=== PATIENT | male | born 1940 | race Two or more races ===

== ENCOUNTER 2022-04-07 19:52 | Inpatient (IN) | payer MEDICARE ==
[~2022-04-07] VITALS: Ht 167.6 cm; Wt 63.2 kg
[2022-04-07 21:15] LABS: MEAN PLATELET VOLUME 8.3 fl (7.4-10.4); PLATELET 174 x1000/uL (130-400); RED BLOOD CELL COUNT 2.35 mill/uL (4.7-6.1); RED CELL DISTRIBUTION WIDTH 15.4 % (11.6-14.6)
[2022-04-07 21:20] LABS: INR 1.2; PROTHROMBIN TIME 12.4 sec (9.6-11.0)
[2022-04-07 21:21] LABS: HEMATOCRIT. 20.9 % (42.0-52.0); HEMOGLOBIN. 6.8 g/dL (14.0-18.0)
[2022-04-07 21:25] LABS: CHLORIDE 111 mEq/L (98-107)
[2022-04-07] MEDS ORDERED: ACETAMINOPHEN 325MG TABLET PO ONE (21:30)
[2022-04-07 21:40] LABS: PLATELET ESTIMATE NORMAL
[2022-04-08] MEDS ORDERED: GUAIFENESIN 200MG/10ML SUGAR FREE UDC PO PRN (03:30)
[2022-04-08] MEDS ORDERED: ACETAMINOPHEN 325MG TABLET PO PRN ×2 (03:30)
[2022-04-08] MEDS ORDERED: IPRATROPIUM/ALBUTEROL 0.5-3(2.5)MG/3ML NEB HHN PRN (03:30)
[2022-04-08] MEDS: FUROSEMIDE 40MG/4ML VIAL IV SCH ×3 (03:30→18:42)
[2022-04-08] MEDS ORDERED: ONDANSETRON HCL 4MG/2ML INJ IV PRN (03:30)
[2022-04-08] MEDS ORDERED: ACETAMINOPHEN 650MG SUPP PR PRN ×2 (03:30)
[2022-04-08] MEDS ORDERED: DEXTROSE 50% WATER 50ML SYRINGE IV PRN (06:15)
[2022-04-08] MEDS: BLOOD SUGAR DIAGNOSTIC STRIP TEST SCH ×4 (06:25→20:34)
[2022-04-08] MEDS: INSULIN LISPRO (LOW DOSE) 100 UNITS/ML SUBCUT SCH ×5 (06:32→21:23)
[2022-04-08] MEDS ORDERED: ENOXAPARIN 30MG/0.3ML SYR SUBCUT SCH (09:00)
[2022-04-08 09:39] LABS: CLARITY URINE CLEAR (CLEAR); COLOR URINE YELLOW (YELLOW); KETONES URINE NEGATIVE (NEGATIVE); LEUKOCYTE ESTERASE URINE NEGATIVE (NEGATIVE); NITRITE URINE NEGATIVE (NEGATIVE); OCCULT BLOOD URINE NEGATIVE (NEGATIVE); PROTEIN URINE 3+ (NEGATIVE); UROBILINOGEN URINE 0.2 E.U./dL (0.2-1.0)
[2022-04-08 09:57] LABS: *AMPHETAMINES SCREEN URINE NEGATIVE (NEGATIVE); *BARBITURATES SCREEN URINE NEGATIVE (NEGATIVE); *BENZODIAZEPINES SCREEN URINE NEGATIVE (NEGATIVE); *COCAINE SCREEN URINE NEGATIVE (NEGATIVE); CANNABINOID URINE SCREEN NEGATIVE (NEGATIVE); METHADONE URINE SCREEN NEGATIVE (NEGATIVE); OPIATES URINE SCREEN NEGATIVE (NEGATIVE); PHENCYCLIDINE URINE SCREEN NEGATIVE (NEGATIVE)
[2022-04-08 10:59] VITALS: BP 185/68
[2022-04-08] MEDS: CLONIDINE 0.1MG TABLET PO PRN ×2 (11:37→21:02)
[2022-04-08 12:00] VITALS: BP 138/72
[2022-04-08] MEDS: IPRATROPIUM/ALBUTEROL 0.5-3(2.5)MG/3ML NEB HHN SCH ×2 (14:50→20:35)
[2022-04-08 16:00] VITALS: BP 141/70
[2022-04-08 16:27] LABS: HEMATOCRIT. 25.8 % (42.0-52.0); HEMOGLOBIN. 8.6 g/dL (14.0-18.0); MEAN CORPUSCULAR HEMOGLOBIN 29.5 pg (28.0-32.0); MEAN CORPUSCULAR VOLUME 88.2 fL (80.0-94.0); MEAN PLATELET VOLUME 8.5 fl (7.4-10.4); PLATELET 167 x1000/uL (130-400); RED BLOOD CELL COUNT 2.92 mill/uL (4.7-6.1); RED CELL DISTRIBUTION WIDTH 15.1 % (11.6-14.6)
[2022-04-08] MEDS ORDERED: NIFE90TA60 PO (16:31)
[2022-04-08] MEDS ORDERED: PANT40TA51 PO (16:31)
[2022-04-08] MEDS ORDERED: KEPP250 MT (16:31)
[2022-04-08] MEDS ORDERED: FERR325T6 MT (16:31)
[2022-04-08] MEDS ORDERED: HYDR100T26 PO (16:31)
[2022-04-08] MEDS ORDERED: ASPI-1160 PO (16:31)
[2022-04-08] MEDS ORDERED: NEPVIT MT (16:31)
[2022-04-08] MEDS ORDERED: ATOR-2 PO (16:31)
[2022-04-08] MEDS ORDERED: METO-411 PO (16:31)
[2022-04-08 16:54] LABS: CHLORIDE 109 mEq/L (98-107)
[2022-04-08 17:08] LABS: CREATINE KINASE 120 IU/L (39-308); HDL CHOLESTEROL 70 mg/dL (40-59); LDL CHOLESTEROL 53 mg/dL (5-100)
[2022-04-08 17:17] LABS: PLATELET ESTIMATE NORMAL
[2022-04-08 19:45] LABS: BASOPHILS % 0.7 % (0.0-2.0); HEMATOCRIT. 25.6 % (42.0-52.0); HEMOGLOBIN. 8.5 g/dL (14.0-18.0); LYMPHOCYTES % 8.1 % (20.0-50.0); MEAN CORPUSCULAR HEMOGLOBIN 29.2 pg (28.0-32.0); MEAN CORPUSCULAR VOLUME 88.1 fL (80.0-94.0); MEAN PLATELET VOLUME 7.8 fl (7.4-10.4); MONOCYTES % 8.7 % (2.0-8.0); NEUTROPHILS % 81.5 % (40.0-76.0); PLATELET 153 x1000/uL (130-400); RED CELL DISTRIBUTION WIDTH 15.1 % (11.6-14.6)
[2022-04-08 19:55] LABS: VITAMIN B12 SERUM 1154 pg/mL (211-911)
[2022-04-08 20:00] VITALS: BP 180/75
[2022-04-09] VITALS: BP 155/59
[2022-04-09] MEDS: IPRATROPIUM/ALBUTEROL 0.5-3(2.5)MG/3ML NEB HHN SCH ×5 (01:09→20:19)
[2022-04-09 04:00] VITALS: BP 184/59
[2022-04-09] MEDS: CLONIDINE 0.1MG TABLET PO PRN ×2 (05:33→08:26)
[2022-04-09] MEDS: BLOOD SUGAR DIAGNOSTIC STRIP TEST SCH ×4 (05:33→21:14)
[2022-04-09] MEDS: INSULIN LISPRO (LOW DOSE) 100 UNITS/ML SUBCUT SCH ×4 (05:33→21:50)
[2022-04-09 07:39] LABS: BASOPHILS % 0.6 % (0.0-2.0); EOSINOPHILS % 6.2 % (0.0-5.0); HEMATOCRIT. 23.3 % (42.0-52.0); HEMOGLOBIN. 7.7 g/dL (14.0-18.0); LYMPHOCYTES % 10.2 % (20.0-50.0); MEAN CORPUSCULAR HEMOGLOBIN 29.3 pg (28.0-32.0); MEAN CORPUSCULAR VOLUME 88.9 fL (80.0-94.0); MEAN PLATELET VOLUME 8.5 fl (7.4-10.4); MONOCYTES % 10.4 % (2.0-8.0); NEUTROPHILS % 72.6 % (40.0-76.0); PLATELET 138 x1000/uL (130-400); RED BLOOD CELL COUNT 2.63 mill/uL (4.7-6.1); RED CELL DISTRIBUTION WIDTH 14.9 % (11.6-14.6)
[2022-04-09 08:00] VITALS: BP 199/78
[2022-04-09] MEDS: FUROSEMIDE 40MG/4ML VIAL IV SCH ×2 (08:26→17:02)
[2022-04-09] MEDS ORDERED: HYDRALAZINE 20MG/ML VIAL IV PRN (10:15)
[2022-04-09] MEDS: IRON SUCROSE COMPLEX 100 MG/5 ML ML IV SCH (10:56)
[2022-04-09] MEDS: METOPROLOL SUCCINATE 50MG ER TABLET PO SCH (10:57)
[2022-04-09] MEDS: NIFEDIPINE XL 90MG TAB PO SCH (10:57)
[2022-04-09] MEDS: METOLAZONE 5MG TABLET PO SCH ×2 (10:58→17:02)
[2022-04-09 12:00] VITALS: BP 152/68
[2022-04-09] MEDS: ACETYLCYSTEINE 100MG/ML 10% VIAL 4ML INH SCH (14:26)
[2022-04-09 16:00] VITALS: BP 145/72
[2022-04-09] MEDS: CEFTRIAXONE 1,000 MG in DEXTROSE 5% WATER 50 ML IV SCH (16:14)
[2022-04-09] MEDS: AZITHROMYCIN 500 MG in DEXT 5% WATER 250 ML IV SCH (16:14)
[2022-04-09] MEDS: SODIUM CHLORIDE 3% FOR INH 4ML UD NEB INH SCH (16:27)
[2022-04-09 20:00] VITALS: BP 124/50
[2022-04-10] VITALS: BP 137/53
[2022-04-10] MEDS: IPRATROPIUM/ALBUTEROL 0.5-3(2.5)MG/3ML NEB HHN SCH ×6 (00:10→20:00)
[2022-04-10] MEDS: SODIUM CHLORIDE 3% FOR INH 4ML UD NEB INH SCH ×3 (01:28→16:40)
[2022-04-10] MEDS: ACETYLCYSTEINE 100MG/ML 10% VIAL 4ML INH SCH ×3 (01:28→16:41)
[2022-04-10] MEDS: MAGNESIUM/ALUMINUM HYDROXIDE/SIMETHICONE 30ML UDC PO PRN (02:10)
[2022-04-10 04:00] VITALS: BP 121/61
[2022-04-10] MEDS: INSULIN LISPRO (LOW DOSE) 100 UNITS/ML SUBCUT SCH ×4 (05:19→20:14)
[2022-04-10] MEDS: BLOOD SUGAR DIAGNOSTIC STRIP TEST SCH ×4 (05:19→19:34)
[2022-04-10 07:08] LABS: BASOPHILS % 0.6 % (0.0-2.0); EOSINOPHILS % 13.1 % (0.0-5.0); HEMATOCRIT. 23.8 % (42.0-52.0); MEAN CORPUSCULAR HEMOGLOBIN 29.9 pg (28.0-32.0); MEAN CORPUSCULAR VOLUME 88.7 fL (80.0-94.0); MEAN PLATELET VOLUME 8.7 fl (7.4-10.4); MONOCYTES % 9.9 % (2.0-8.0); NEUTROPHILS % 65.4 % (40.0-76.0); PLATELET 137 x1000/uL (130-400); RED BLOOD CELL COUNT 2.68 mill/uL (4.7-6.1); RED CELL DISTRIBUTION WIDTH 15.1 % (11.6-14.6)
[2022-04-10 08:00] VITALS: BP 159/65
[2022-04-10] MEDS: FUROSEMIDE 40MG/4ML VIAL IV SCH ×2 (09:32→18:18)
[2022-04-10] MEDS: METOLAZONE 5MG TABLET PO SCH ×2 (09:32→19:02)
[2022-04-10] MEDS: NIFEDIPINE XL 90MG TAB PO SCH (09:33)
[2022-04-10] MEDS: METOPROLOL SUCCINATE 50MG ER TABLET PO SCH ×2 (09:41→18:18)
[2022-04-10 12:00] VITALS: BP 166/62
[2022-04-10] MEDS: IRON SUCROSE COMPLEX 100 MG/5 ML ML IV SCH (12:38)
[2022-04-10] MEDS: CLONIDINE 0.1MG TABLET PO PRN (12:39)
[2022-04-10] MEDS: CEFTRIAXONE 1,000 MG in DEXTROSE 5% WATER 50 ML IV SCH (14:16)
[2022-04-10] MEDS: AZITHROMYCIN 500 MG in DEXT 5% WATER 250 ML IV SCH (14:16)
[2022-04-10 16:00] VITALS: BP 120/53
[2022-04-10 20:00] VITALS: BP 134/53
[2022-04-11] VITALS (7 sets, daily range): BP systolic 110–168; BP diastolic 59–100
[2022-04-11] MEDS: ACETYLCYSTEINE 100MG/ML 10% VIAL 4ML INH SCH ×3 (00:10→15:35)
[2022-04-11] MEDS: IPRATROPIUM/ALBUTEROL 0.5-3(2.5)MG/3ML NEB HHN SCH ×6 (00:10→20:50)
[2022-04-11] MEDS: SODIUM CHLORIDE 3% FOR INH 4ML UD NEB INH SCH ×3 (00:20→15:24)
[2022-04-11] MEDS: BLOOD SUGAR DIAGNOSTIC STRIP TEST SCH ×4 (05:44→20:41)
[2022-04-11] MEDS: INSULIN LISPRO (LOW DOSE) 100 UNITS/ML SUBCUT SCH ×4 (05:44→20:41)
[2022-04-11 07:00] LABS: BASOPHILS % 0.7 % (0.0-2.0); EOSINOPHILS % 11.8 % (0.0-5.0); HEMATOCRIT. 25.7 % (42.0-52.0); HEMOGLOBIN. 8.7 g/dL (14.0-18.0); LYMPHOCYTES % 8.2 % (20.0-50.0); MEAN CORPUSCULAR HEMOGLOBIN 30.3 pg (28.0-32.0); MEAN PLATELET VOLUME 8.5 fl (7.4-10.4); MONOCYTES % 9.5 % (2.0-8.0); NEUTROPHILS % 69.8 % (40.0-76.0); PLATELET 150 x1000/uL (130-400); RED BLOOD CELL COUNT 2.89 mill/uL (4.7-6.1); RED CELL DISTRIBUTION WIDTH 15.2 % (11.6-14.6)
[2022-04-11 07:55] LABS: PHOSPHORUS 4.8 mg/dL (2.5-4.9)
[2022-04-11] MEDS ORDERED: LIDOCAINE HCL/PF 1% 10 MG/ML 5ML VIAL ONE (07:57)
[2022-04-11] MEDS ORDERED: SODIUM BICARBONATE 4% (2.4MEQ) 5ML VIAL IV ONE (07:57)
[2022-04-11] MEDS: FUROSEMIDE 40MG/4ML VIAL IV SCH ×2 (08:50→17:48)
[2022-04-11] MEDS: POTASSIUM CHLORIDE 20MEQ TABLET SR PO NR (08:50)
[2022-04-11] MEDS: METOPROLOL SUCCINATE 50MG ER TABLET PO SCH (08:50)
[2022-04-11] MEDS: AZITHROMYCIN 500 MG TABLET PO SCH (08:50)
[2022-04-11] MEDS: NIFEDIPINE XL 90MG TAB PO SCH (08:51)
[2022-04-11] MEDS: METOLAZONE 5MG TABLET PO SCH ×2 (08:54→17:48)
[2022-04-11] MEDS ORDERED: AZITHROMYCIN 500 MG TABLET PO SCH (09:00)
[2022-04-11] MEDS: CEFTRIAXONE 1,000 MG in DEXTROSE 5% WATER 50 ML IV SCH (13:42)
[2022-04-11 16:24] LABS: INR 1.1; PROTHROMBIN TIME 11.9 sec (9.6-11.0)
[2022-04-11] MEDS: CLONIDINE 0.1MG TABLET PO PRN (20:56)
[2022-04-12] MEDS: ACETYLCYSTEINE 100MG/ML 10% VIAL 4ML INH SCH ×4 (00:57→23:34)
[2022-04-12] MEDS: IPRATROPIUM/ALBUTEROL 0.5-3(2.5)MG/3ML NEB HHN SCH ×7 (00:57→23:37)
[2022-04-12 04:00] VITALS: BP 135/51
[2022-04-12] MEDS: BLOOD SUGAR DIAGNOSTIC STRIP TEST SCH ×4 (06:27→20:28)
[2022-04-12] MEDS: INSULIN LISPRO (LOW DOSE) 100 UNITS/ML SUBCUT SCH ×4 (06:27→20:28)
[2022-04-12] MEDS: POTASSIUM CHLORIDE 20MEQ TABLET SR PO NR (06:54)
[2022-04-12] MEDS: SODIUM CHLORIDE 3% FOR INH 4ML UD NEB INH SCH ×3 (07:43→23:34)
[2022-04-12 07:46] LABS: BASOPHILS % 0.9 % (0.0-2.0); EOSINOPHILS % 9.2 % (0.0-5.0); HEMATOCRIT. 26.1 % (42.0-52.0); HEMOGLOBIN. 8.9 g/dL (14.0-18.0); LYMPHOCYTES % 8.8 % (20.0-50.0); MEAN CORPUSCULAR HEMOGLOBIN 29.9 pg (28.0-32.0); MEAN CORPUSCULAR VOLUME 87.3 fL (80.0-94.0); MEAN PLATELET VOLUME 8.7 fl (7.4-10.4); MONOCYTES % 7.2 % (2.0-8.0); NEUTROPHILS % 73.9 % (40.0-76.0); PLATELET 164 x1000/uL (130-400); RED BLOOD CELL COUNT 2.99 mill/uL (4.7-6.1); RED CELL DISTRIBUTION WIDTH 14.6 % (11.6-14.6)
[2022-04-12 08:00] VITALS: BP 142/53
[2022-04-12] MEDS ORDERED: POTASSIUM CHLORIDE 20MEQ/PACKET PO ONE (08:30)
[2022-04-12] MEDS ORDERED: POTASSIUM CHLORIDE 10MEQ TABLET SR PO NR (09:30)
[2022-04-12 10:19] LABS: PHOSPHORUS 4.6 mg/dL (2.5-4.9)
[2022-04-12] MEDS: FUROSEMIDE 40MG/4ML VIAL IV SCH ×2 (10:19→17:38)
[2022-04-12] MEDS: METOPROLOL SUCCINATE 50MG ER TABLET PO SCH (10:20)
[2022-04-12] MEDS: NIFEDIPINE XL 90MG TAB PO SCH (10:20)
[2022-04-12] MEDS: AZITHROMYCIN 500 MG TABLET PO SCH (10:20)
[2022-04-12 12:00] VITALS: BP 141/50
[2022-04-12] MEDS: CEFTRIAXONE 1,000 MG in DEXTROSE 5% WATER 50 ML IV SCH (15:33)
[2022-04-12] MEDS: DOCUSATE SODIUM 100MG CAPSULE PO PRN (15:41)
[2022-04-12 16:00] VITALS: BP 143/58
[2022-04-12] MEDS: FERROUS SULFATE 325MG TABLET PO SCH (17:37)
[2022-04-12 20:00] VITALS: BP 152/61
[2022-04-13] VITALS: BP 144/58
[2022-04-13] MEDS: MAGNESIUM/ALUMINUM HYDROXIDE/SIMETHICONE 30ML UDC PO PRN (03:20)
[2022-04-13] MEDS: IPRATROPIUM/ALBUTEROL 0.5-3(2.5)MG/3ML NEB HHN SCH ×5 (03:29→21:26)
[2022-04-13 04:00] VITALS: BP 146/56
[2022-04-13] MEDS: INSULIN LISPRO (LOW DOSE) 100 UNITS/ML SUBCUT SCH ×3 (06:24→17:40)
[2022-04-13] MEDS: BLOOD SUGAR DIAGNOSTIC STRIP TEST SCH ×3 (06:24→17:42)
[2022-04-13] MEDS: FERROUS SULFATE 325MG TABLET PO SCH ×3 (06:41→17:46)
[2022-04-13 08:00] VITALS: BP 165/65
[2022-04-13 08:16] LABS: BASOPHILS % 0.5 % (0.0-2.0); EOSINOPHILS % 5.4 % (0.0-5.0); HEMATOCRIT. 24.9 % (42.0-52.0); HEMOGLOBIN. 8.4 g/dL (14.0-18.0); LYMPHOCYTES % 7.2 % (20.0-50.0); MEAN CORPUSCULAR HEMOGLOBIN 29.5 pg (28.0-32.0); MEAN CORPUSCULAR VOLUME 87.6 fL (80.0-94.0); MEAN PLATELET VOLUME 8.9 fl (7.4-10.4); MONOCYTES % 8.4 % (2.0-8.0); NEUTROPHILS % 78.5 % (40.0-76.0); PLATELET 161 x1000/uL (130-400); RED BLOOD CELL COUNT 2.84 mill/uL (4.7-6.1); RED CELL DISTRIBUTION WIDTH 14.7 % (11.6-14.6)
[2022-04-13] MEDS: NIFEDIPINE XL 90MG TAB PO SCH (08:25)
[2022-04-13] MEDS: FUROSEMIDE 40MG/4ML VIAL IV SCH ×2 (08:25→17:42)
[2022-04-13] MEDS: AZITHROMYCIN 500 MG TABLET PO SCH (08:26)
[2022-04-13] MEDS: METOPROLOL SUCCINATE 50MG ER TABLET PO SCH (08:26)
[2022-04-13] MEDS: ACETYLCYSTEINE 100MG/ML 10% VIAL 4ML INH SCH ×2 (08:43→16:38)
[2022-04-13] MEDS: SODIUM CHLORIDE 3% FOR INH 4ML UD NEB INH SCH (08:43)
[2022-04-13] MEDS ORDERED: POTASSIUM CHLORIDE 20MEQ TABLET SR PO SCH (08:45)
[2022-04-13] MEDS ORDERED: METOLAZONE 2.5MG TABLET PO SCH (09:00)
[2022-04-13] MEDS: DOCUSATE SODIUM 100MG CAPSULE PO PRN (11:24)
[2022-04-13 12:00] VITALS: BP 143/69
[2022-04-13] MEDS: CEFTRIAXONE 1,000 MG in DEXTROSE 5% WATER 50 ML IV SCH (12:28)
[2022-04-13] MEDS ORDERED: BISACODYL 10MG SUPP PR NR (14:45)
[2022-04-13 15:20] LABS: FERRITIN 588 ng/mL (22-322)
[2022-04-13 16:00] VITALS: BP 157/60
[2022-04-13] MEDS ORDERED: LEVO250T43 MT (16:29)
[2022-04-13] MEDS ORDERED: FURO-151 MT (16:29)
[2022-04-13 16:34] LABS: FOLIC ACID (FOLATE) SERUM > 20.00 ng/mL (>5.38)
[2022-04-13 18:27] VITALS: BP 157/60
[2022-04-14 09:06] LABS: A/G RATIO 0.8 (0.7-1.7); ALBUMIN 2.9 g/dL (2.9-4.4); ALPHA-1-GLOBULIN 0.4 g/dL (0.0-0.4); ALPHA-2-GLOBULIN 0.8 g/dL (0.4-1.0); GAMMA GLOBULINS 1.4 g/dL (0.4-1.8); GLOBULIN TOTAL 3.7 g/dL (2.2-3.9); IMMUNOGLOBULIN A 428 mg/dL (61-437); IMMUNOGLOBULIN G 1280 mg/dL (603-1613); IMMUNOGLOBULIN M 59 mg/dL (15-143); M-SPIKE Not Observed g/dL (Not Observed); TOTAL PROTEIN SERUM 6.6 g/dL (6.0-8.5)
[2022-04-15 13:07] LABS: FOLATE HEMOLYSATE > 620.0 ng/mL (Not Estab.)
[2022-04-15 18:44] LABS: VITAMIN B12 SERUM 1635 pg/mL (211-911)
== END 2022-04-13 22:10 | disposition home health service (06) | DRG 291 ==
LOC: ER 19:52 → MICUSO 04-08 01:02 → 8WST 04-08 10:46
PROVIDERS: ADMIT Family Medicine Adult Medicine; ATTEND Family Medicine Adult Medicine
PROC: 30233N1 Transfusion of Nonautologous Red Blood Cells into Peripheral Vein, Percutaneous Approach (ICD-10-PCS; 2022-04-08)
PROC: 0W9B3ZZ Drainage of Left Pleural Cavity, Percutaneous Approach (ICD-10-PCS; principal; 2022-04-11)
DX: I13.0 Hypertensive heart and chronic kidney disease with heart failure and stage 1 through stage 4 chronic kidney disease, or unspecified chronic kidney disease (principal); J18.9 Pneumonia, unspecified organism; J96.01 Acute respiratory failure with hypoxia; E44.0 Moderate protein-calorie malnutrition; N17.9 Acute kidney failure, unspecified; J91.8 Pleural effusion in other conditions classified elsewhere; J44.0 Chronic obstructive pulmonary disease with (acute) lower respiratory infection; Z20.822 Contact with and (suspected) exposure to COVID-19; E11.22 Type 2 diabetes mellitus with diabetic chronic kidney disease; J44.9 Chronic obstructive pulmonary disease, unspecified; N18.9 Chronic kidney disease, unspecified; I50.9 Heart failure, unspecified; D63.1 Anemia in chronic kidney disease; I25.10 Atherosclerotic heart disease of native coronary artery without angina pectoris; E78.5 Hyperlipidemia, unspecified; R77.8 Other specified abnormalities of plasma proteins; R79.89 Other specified abnormal findings of blood chemistry; R80.9 Proteinuria, unspecified; Z68.22 Body mass index [BMI] 22.0-22.9, adult; Z88.8 Allergy status to other drugs, medicaments and biological substances; Z79.899 Other long term (current) drug therapy
CPT/HCPCS: 32555; 36415; 71045; 71250; 76770; 80048; 80053; 80061; 80305; 81003; 82040; 82550; 82570; 82607; 82728; 82746; 82747; 82784; 82962; 83540; 83550; 83615; 83735; 83880; 84100; 84145; 84155; 84156; 84165; 84443; 84484; 85014; 85025; 85044; 86334; 86850; 86900; 86920; 87426; 88108; 88312; 93005; 93306; 94640; 97166; 99285; C9803; J0456; J0696; J1815; J1940; J3490; J7060; J7608; P9016

== ENCOUNTER 2022-06-26 20:47 | Inpatient (IN) | payer MEDICARE ==
[~2022-06-26] VITALS: Ht 170.2 cm; Wt 64.0 kg
[~2022-06-26 20:47] MED LIST: ASPI-1160 PO; ATOR-2 PO; FERR325T6 MT; FURO-151 MT; HYDR100T26 PO; KEPP250 MT; LEVO250T74 MT; METO-411 PO; NEPVIT MT; NIFE90TA60 PO; PANT40TA51 PO
[2022-06-26 21:01] LABS: BG BASE EXCESS -5.5 mmol/L (-2.0-2.0); BG CARBOXYHEMOGLOBIN 0.8 % (0.5-1.5); BG DEOXYHEMOGLOBIN 4.8 % (0.0-5.0); BG FRACTION INSPIRED OXYGEN 28; BG HCO3 ACT 19.2 mmol/L (22.0-26.0); BG METHEMOGLOBIN 0.4 % (0.0-1.5); BG OXYGEN SATURATION 95.1 % (92.0-98.5); BG PCO2 33.9 mmHg (35.0-45.0); BG PO2 74.4 mmHg (75.0-100.0); BG SAMPLE SITE RIGHT RADIAL; BG TOTAL HEMOGLOBIN 7.6 g/dL (12.0-18.0); BG VENT MODE NASAL CANNULA
[2022-06-26] MEDS ORDERED: IPRATROPIUM/ALBUTEROL 0.5-3(2.5)MG/3ML NEB HHN ONE (21:15)
[2022-06-26] MEDS ORDERED: METHYLPREDNISOLONE SOD SUCC 125 MG/2 ML VIAL IV ONE (21:15)
[2022-06-26 21:59] LABS: MEAN CORPUSCULAR HEMOGLOBIN 30.1 pg (28.0-32.0); MEAN CORPUSCULAR VOLUME 88.6 fL (80.0-94.0); MEAN PLATELET VOLUME 7.3 fl (7.4-10.4); PLATELET 220 x1000/uL (130-400); RED BLOOD CELL COUNT 2.31 mill/uL (4.7-6.1); RED CELL DISTRIBUTION WIDTH 14.9 % (11.6-14.6)
[2022-06-26 22:11] LABS: HEMOGLOBIN. 6.9 g/dL (14.0-18.0)
[2022-06-26 22:12] LABS: HEMATOCRIT. 20.4 % (42.0-52.0)
[2022-06-26 22:16] LABS: CHLORIDE 110 mEq/L (98-107)
[2022-06-26] MEDS ORDERED: AZITHROMYCIN 500 MG in DEXT 5% WATER 250 ML IV SCH (22:45)
[2022-06-26] MEDS ORDERED: CEFTRIAXONE 1 G PREMIX 50 ML IV ONE (22:45)
[2022-06-26] MEDS ORDERED: AZITHROMYCIN 500MG/250ML 250 ML IV NR (22:45)
[2022-06-26 22:53] LABS: PLATELET ESTIMATE NORMAL
[2022-06-26] MEDS ORDERED: FUROSEMIDE 100MG/10ML VIAL IVP NR (23:15)
[2022-06-27] MEDS ORDERED: SODIUM CHLORIDE 3% FOR INH 15ML VIAL NEB INH NR (07:30)
[2022-06-27] MEDS ORDERED: IPRATROPIUM/ALBUTEROL 0.5-3(2.5)MG/3ML NEB HHN PRN (07:30)
[2022-06-27] MEDS ORDERED: AMLODIPINE 10MG TABLET PO NR (11:00)
[2022-06-27] MEDS ORDERED: DEXTROSE 50% WATER 50ML SYRINGE IV PRN (11:00)
[2022-06-27] MEDS: BLOOD SUGAR DIAGNOSTIC STRIP TEST SCH ×3 (13:00→20:37)
[2022-06-27] MEDS: INSULIN LISPRO 100 UNITS/ML SUBCUT SCH ×3 (13:20→20:38)
[2022-06-27 14:56] VITALS: BP 145/64
[2022-06-27 16:00] VITALS: BP 145/64
[2022-06-27] MEDS ORDERED: PNEUMOCOCCAL 23-VAL P-SAC VAC 0.5 ML IM ONE (16:30)
[2022-06-27] MEDS ORDERED: INFLUENZA VACCINE 05/PF 0.5 ML SYRINGE IM ONE (16:30)
[2022-06-27] MEDS ORDERED: FUROSEMIDE 40MG/4ML VIAL IVP SCH (18:00)
[2022-06-27 20:00] VITALS: BP 153/66
[2022-06-27] MEDS ORDERED: CEFTRIAXONE 1,000 MG in DEXTROSE 5% WATER 50 ML IV SCH (21:00)
[2022-06-27] MEDS: CEFTRIAXONE 1,000 MG in DEXTROSE 5% WATER 50 ML IV SCH (21:07)
[2022-06-27 23:44] LABS: BASOPHILS % 0.4 % (0.0-2.0); EOSINOPHILS % 0.3 % (0.0-5.0); HEMATOCRIT. 25.5 % (42.0-52.0); HEMOGLOBIN. 8.7 g/dL (14.0-18.0); LYMPHOCYTES % 8.5 % (20.0-50.0); MEAN CORPUSCULAR HEMOGLOBIN 29.9 pg (28.0-32.0); MEAN CORPUSCULAR VOLUME 87.8 fL (80.0-94.0); MONOCYTES % 10.3 % (2.0-8.0); NEUTROPHILS % 80.5 % (40.0-76.0); PLATELET 253 x1000/uL (130-400); RED BLOOD CELL COUNT 2.91 mill/uL (4.7-6.1); RED CELL DISTRIBUTION WIDTH 15.2 % (11.6-14.6)
[2022-06-28] VITALS: BP 107/74
[2022-06-28 00:19] LABS: CHLORIDE 107 mEq/L (98-107)
[2022-06-28] MEDS: SODIUM CHLORIDE 0.45% 1,000 ML IV SCH ×2 (00:24→22:11)
[2022-06-28 00:27] LABS: TOTAL IRON BINDING CAPACITY 180 ug/dL (250-450)
[2022-06-28 01:30] LABS: CLARITY URINE CLEAR (CLEAR); COLOR URINE YELLOW (YELLOW); KETONES URINE NEGATIVE (NEGATIVE); LEUKOCYTE ESTERASE URINE NEGATIVE (NEGATIVE); NITRITE URINE NEGATIVE (NEGATIVE); OCCULT BLOOD URINE NEGATIVE (NEGATIVE); PROTEIN URINE 3+ (NEGATIVE); SPECIFIC GRAVITY URINE 1.013 (1.005-1.030); UROBILINOGEN URINE 0.2 E.U./dL (0.2-1.0)
[2022-06-28 04:00] VITALS: BP 125/71
[2022-06-28] MEDS: INSULIN LISPRO 100 UNITS/ML SUBCUT SCH ×4 (06:06→21:00)
[2022-06-28] MEDS: BLOOD SUGAR DIAGNOSTIC STRIP TEST SCH ×4 (06:06→21:00)
[2022-06-28 08:00] VITALS: BP 121/87
[2022-06-28] MEDS ORDERED: SODIUM CHLORIDE 3% FOR INH 4ML UD NEB INH SCH (09:00)
[2022-06-28] MEDS ORDERED: FUROSEMIDE 40MG/4ML VIAL IVP SCH (09:00)
[2022-06-28 09:50] LABS: BASOPHILS % 0.6 % (0.0-2.0); HEMATOCRIT. 24.3 % (42.0-52.0); HEMOGLOBIN. 8.3 g/dL (14.0-18.0); LYMPHOCYTES % 7.6 % (20.0-50.0); MEAN CORPUSCULAR HEMOGLOBIN 30.1 pg (28.0-32.0); MEAN CORPUSCULAR VOLUME 88.2 fL (80.0-94.0); MEAN PLATELET VOLUME 7.9 fl (7.4-10.4); NEUTROPHILS % 82.8 % (40.0-76.0); PLATELET 251 x1000/uL (130-400); RED BLOOD CELL COUNT 2.76 mill/uL (4.7-6.1); RED CELL DISTRIBUTION WIDTH 15.2 % (11.6-14.6)
[2022-06-28] MEDS: AMLODIPINE 10MG TABLET PO SCH (09:58)
[2022-06-28 12:00] VITALS: BP 212/86
[2022-06-28] MEDS ORDERED: ATOR20TA65 PO (13:07)
[2022-06-28] MEDS ORDERED: KEPP500 PO (13:07)
[2022-06-28] MEDS ORDERED: METO-385 PO (13:07)
[2022-06-28 13:17] LABS: INR 1.1; PARTIAL THROMBOPLASTIN TIME 29.4 sec (23.4-31.0); PROTHROMBIN TIME 11.9 sec (9.6-11.0)
[2022-06-28] MEDS: FOLIC ACID/VITAMIN B COMP W-C TABLET PO SCH (13:40)
[2022-06-28] MEDS: HYDRALAZINE HCL 100MG TABLET PO SCH ×2 (13:40→22:11)
[2022-06-28] MEDS: LEVETIRACETAM 500MG TABLET PO SCH ×2 (13:40→22:11)
[2022-06-28] MEDS ORDERED: METOPROLOL SUCCINATE 50MG ER TABLET PO SCH (14:00)
[2022-06-28] MEDS ORDERED: ASPIRIN 81MG TABLET PO SCH (14:00)
[2022-06-28 14:37] LABS: VITAMIN B12 SERUM 1983 pg/mL (211-911)
[2022-06-28 16:00] VITALS: BP 123/63
[2022-06-28] MEDS ORDERED: CLON0.2T PO (16:00)
[2022-06-28 20:00] VITALS: BP 179/68
[2022-06-28] MEDS: ACETYLCYSTEINE 200MG/ML 20% VIAL 4ML INH SCH (21:00)
[2022-06-28] MEDS: IPRATROPIUM/ALBUTEROL 0.5-3(2.5)MG/3ML NEB HHN SCH (21:02)
[2022-06-28] MEDS: ATORVASTATIN CALCIUM 20MG TABLET PO SCH (22:10)
[2022-06-28] MEDS: CEFTRIAXONE 1,000 MG in DEXTROSE 5% WATER 50 ML IV SCH (22:11)
[2022-06-29] VITALS: BP 176/65
[2022-06-29] MEDS: IPRATROPIUM/ALBUTEROL 0.5-3(2.5)MG/3ML NEB HHN SCH ×4 (00:56→22:28)
[2022-06-29] MEDS: LOSARTAN POTASSIUM 100 MG TABLET PO SCH ×2 (02:03→10:13)
[2022-06-29 04:00] VITALS: BP 196/74
[2022-06-29] MEDS: PANTOPRAZOLE 40MG DR TABLET PO SCH (06:09)
[2022-06-29] MEDS: BLOOD SUGAR DIAGNOSTIC STRIP TEST SCH ×4 (06:10→21:00)
[2022-06-29] MEDS: INSULIN LISPRO 100 UNITS/ML SUBCUT SCH ×4 (06:10→23:17)
[2022-06-29] MEDS: HYDRALAZINE HCL 100MG TABLET PO SCH (06:14)
[2022-06-29 08:00] VITALS: BP 182/64
[2022-06-29] MEDS ORDERED: SODIUM BICARBONATE 4% (2.4MEQ) 5ML VIAL IV ONE (08:33)
[2022-06-29] MEDS ORDERED: SODIUM CHLORIDE 3% FOR INH 4ML UD NEB INH SCH (09:00)
[2022-06-29] MEDS: FOLIC ACID/VITAMIN B COMP W-C TABLET PO SCH (10:12)
[2022-06-29] MEDS: AMLODIPINE 10MG TABLET PO SCH (10:12)
[2022-06-29] MEDS: LEVETIRACETAM 500MG TABLET PO SCH ×2 (10:12→23:13)
[2022-06-29] MEDS: CARVEDILOL 6.25 MG TABLET PO SCH ×2 (10:13→23:13)
[2022-06-29] MEDS: FUROSEMIDE 20MG/2ML VIAL IVP SCH (10:13)
[2022-06-29] MEDS: ACETYLCYSTEINE 200MG/ML 20% VIAL 4ML INH SCH ×4 (10:14→15:48)
[2022-06-29] MEDS: ISOSORBIDE MONONITRATE 30MG TABLET SR 24HR PO SCH (11:34)
[2022-06-29 12:00] VITALS: BP 177/68
[2022-06-29] MEDS: HYDRALAZINE HCL 50MG TABLET PO SCH ×2 (13:24→23:17)
[2022-06-29 16:00] VITALS: BP 123/63
[2022-06-29 20:00] VITALS: BP 166/68
[2022-06-29 21:38] LABS: HEMATOCRIT. 22.6 % (42.0-52.0); HEMOGLOBIN. 7.7 g/dL (14.0-18.0); MEAN CORPUSCULAR VOLUME 88.8 fL (80.0-94.0); MEAN PLATELET VOLUME 7.7 fl (7.4-10.4); PLATELET 219 x1000/uL (130-400); RED BLOOD CELL COUNT 2.55 mill/uL (4.7-6.1); RED CELL DISTRIBUTION WIDTH 15.4 % (11.6-14.6)
[2022-06-29] MEDS: CEFTRIAXONE 1,000 MG in DEXTROSE 5% WATER 50 ML IV SCH (23:12)
[2022-06-29] MEDS: ATORVASTATIN CALCIUM 20MG TABLET PO SCH (23:13)
[2022-06-29 23:57] LABS: PLATELET ESTIMATE NORMAL
[2022-06-30] VITALS: BP 191/67
[2022-06-30 01:47] LABS: CHLORIDE 106 mEq/L (98-107)
[2022-06-30] MEDS: ACETYLCYSTEINE 200MG/ML 20% VIAL 4ML INH SCH (02:07)
[2022-06-30] MEDS: IPRATROPIUM/ALBUTEROL 0.5-3(2.5)MG/3ML NEB HHN SCH ×3 (02:07→15:08)
[2022-06-30 04:29] VITALS: BP 166/66
[2022-06-30] MEDS: PANTOPRAZOLE 40MG DR TABLET PO SCH (06:10)
[2022-06-30] MEDS: HYDRALAZINE HCL 50MG TABLET PO SCH (06:10)
[2022-06-30] MEDS: SODIUM CHLORIDE 0.45% 1,000 ML IV SCH ×2 (06:12)
[2022-06-30] MEDS: BLOOD SUGAR DIAGNOSTIC STRIP TEST SCH ×3 (06:36→16:26)
[2022-06-30] MEDS: INSULIN LISPRO 100 UNITS/ML SUBCUT SCH ×3 (06:37→16:27)
[2022-06-30 07:25] LABS: HEMOGLOBIN. 7.3 g/dL (14.0-18.0); MEAN CORPUSCULAR HEMOGLOBIN 29.5 pg (28.0-32.0); MEAN CORPUSCULAR VOLUME 88.1 fL (80.0-94.0); MEAN PLATELET VOLUME 7.7 fl (7.4-10.4); PLATELET 208 x1000/uL (130-400); RED BLOOD CELL COUNT 2.49 mill/uL (4.7-6.1); RED CELL DISTRIBUTION WIDTH 15.4 % (11.6-14.6)
[2022-06-30 08:00] VITALS: BP 176/61
[2022-06-30] MEDS: FOLIC ACID/VITAMIN B COMP W-C TABLET PO SCH (09:06)
[2022-06-30] MEDS: CARVEDILOL 6.25 MG TABLET PO SCH (09:06)
[2022-06-30] MEDS: ISOSORBIDE MONONITRATE 30MG TABLET SR 24HR PO SCH (09:06)
[2022-06-30] MEDS: LEVETIRACETAM 500MG TABLET PO SCH (09:06)
[2022-06-30] MEDS: LOSARTAN POTASSIUM 100 MG TABLET PO SCH (09:06)
[2022-06-30] MEDS: AMLODIPINE 10MG TABLET PO SCH (09:06)
[2022-06-30] MEDS: FUROSEMIDE 20MG/2ML VIAL IVP SCH (09:07)
[2022-06-30] MEDS ORDERED: ISOS30TA91 PO (11:55)
[2022-06-30] MEDS ORDERED: FURO40TA5 PO (11:55)
[2022-06-30] MEDS ORDERED: AMLO10TA80 PO (11:55)
[2022-06-30] MEDS ORDERED: COR6 PO (11:55)
[2022-06-30] MEDS ORDERED: LOSA100T3 PO (11:55)
[2022-06-30 12:02] VITALS: BP 161/62
[2022-06-30] MEDS ORDERED: HYDRALAZINE HCL 100MG TABLET PO SCH (14:00)
[2022-06-30 14:43] VITALS: BP 161/62
[2022-06-30 16:35] VITALS: BP 134/60
[2022-06-30 22:06] LABS: PLATELET ESTIMATE NORMAL
[2022-07-01] MEDS ORDERED: FUROSEMIDE 40MG TABLET PO SCH (09:00)
== END 2022-06-30 18:40 | disposition home or self-care (01) | DRG 291 ==
LOC: ER 20:52 → 7EST 23:14 → EDBEDREQTM 06-27 08:17 → EDBEDREQ 06-27 08:17
PROVIDERS: ADMIT Family Medicine; ATTEND Family Medicine
PROC: 5A09357 Assistance with Respiratory Ventilation, Less than 24 Consecutive Hours, Continuous Positive Airway Pressure (ICD-10-PCS; 2022-06-26)
PROC: 30233N1 Transfusion of Nonautologous Red Blood Cells into Peripheral Vein, Percutaneous Approach (ICD-10-PCS; 2022-06-27)
PROC: 0W9B3ZZ Drainage of Left Pleural Cavity, Percutaneous Approach (ICD-10-PCS; principal; 2022-06-29)
DX: I13.0 Hypertensive heart and chronic kidney disease with heart failure and stage 1 through stage 4 chronic kidney disease, or unspecified chronic kidney disease (principal); I50.23 Acute on chronic systolic (congestive) heart failure; J96.01 Acute respiratory failure with hypoxia; J18.9 Pneumonia, unspecified organism; E44.0 Moderate protein-calorie malnutrition; N17.9 Acute kidney failure, unspecified; J44.0 Chronic obstructive pulmonary disease with (acute) lower respiratory infection; J98.19 Other pulmonary collapse; J91.8 Pleural effusion in other conditions classified elsewhere; D63.1 Anemia in chronic kidney disease; E11.22 Type 2 diabetes mellitus with diabetic chronic kidney disease; N18.9 Chronic kidney disease, unspecified; I16.0 Hypertensive urgency; E78.5 Hyperlipidemia, unspecified; E83.51 Hypocalcemia; I48.0 Paroxysmal atrial fibrillation; Z79.899 Other long term (current) drug therapy; Z20.822 Contact with and (suspected) exposure to COVID-19; Z88.8 Allergy status to other drugs, medicaments and biological substances; Z87.891 Personal history of nicotine dependence
CPT/HCPCS: 32555; 36415; 36600; 71045; 71250; 76770; 80048; 80053; 81003; 82040; 82270; 82375; 82607; 82805; 82962; 83036; 83540; 83550; 83615; 83880; 84484; 85025; 86850; 86900; 86920; 87426; 88108; 93005; 93306; 94640; 99285; J0456; J0696; J1815; J1940; J2930; J3490; J7060; J7608; P9016